=== PATIENT | female | born 1945 | race Caucasian/White ===

== ENCOUNTER → 2019-01-17 | Outpatient (CLI) | payer OTHER ==
[~2019-01-17] MED LIST: ADULT LOW DOSE81 MG PO; AMITRIPTYLINE H25 M4 PO; APAP650 PO; ARIXTRA SC; ASPIRIN BUFFER325 MG PO; ASPIRIN325 PO; ATENOLOL 25 MG25 M1 PG; ATENOLOL 25 MG25 M1 PO; DILTIAZEM HCL90 MG PO; ELAVIL PO; FLEXERIL PO; HYDROCHLOROTH12.5 MG PO; HYDROCODON-ACE1 EACH PO; LEVOTHYROXINE 0.1 MG PO; METAMUCIL PAC1 UDPKT PO; MIRALAX17 GM PO; MOBIC15 MG PO; NEURONTIN 300300 M1 PO; NORCO 5-325 TA1 EACH PO; ONDANSETRON HCL4 M2 PO; OXYCODONE HCL 55 MG PO; OXYIR 5 MG CAPSU5 M1 PO; PEPCID20 MG PO; PERCOCET PO; PREMARIN; PREMARIN VAGI42.5 G1 VAG; TRANSDERM-SCO1 PATC1 TD; TRIAMTERENE-HC1 EAC1 PO; XARELTO10 MG PO
--- NOTE | 2019-01-17 18:52 | CARDNUC ---
[place] [address] CARDIAC NUCLEAR IMAGING REPORT Name: BIRDIE MEDINA Room: [facility]#: [id number] Admission: 01/17/19 Attend Phys: Rafael Rodriguez MD Discharge: Date of : 43 Date of Service: 01/17/19 185 Report #: [id number] THIS REPORT FOR: //name// APPROVED REPORT Study performed: 01/17/2019 09:19:28 Indication: Fatigue, Chest pain Patient Location: Out-Patient Stress Tech: Tanesha Boone Stress Nurse: Romelia Jimenez RN NM Tech:ANJELICA Hancock Ht: 5 ft 2 in Wt: 2 lbs BSA: 0.27 m2 HR: 86 bpm BP: 151//82 mmHg BMI: 0.36 Rhythm: NSR Medical History Medical History: Hyperlipidemia, HTN Medications: Aspirin, Diltiazem, Atenolol, Fosamax, Maxzide 37.5/25, Synthroid Allergies: Sulfa Cardiac Risk Factors: Age, Hyperlipidemia, HTN Pretest Chest Pain Characteristics: No chest pain Exercise History: Physically active Meds Held (24 hrs): Diltiazem, , Atenolol Resting Data Rest SPECT myocardial perfusion imaging was performed in supine position 30 minutes following the intravenous injection of 11.4 mCi of Tc-99m Sestamibi. Time of rest injection: 07:50 The images were gated to evaluate regional wall motion and calculate left ventricular ejection fraction. Administration Route: IV Administration Site: Right AC Exercise Stress At peak stress, the patient was injected intravenously with 35.3mCi of Tc-99m Sestamibi. Time of stress injection: 09:20 Administration Route: IV Administration Site: Right AC Heart Rate at time of stress injection: [address] [place] [address] CARDIAC NUCLEAR IMAGING REPORT Name: BIRDIE MEDINA Room: [facility]#: [id number] Admission: 01/17/19 Attend Phys: Rafael Rodriguez MD Discharge: Date of : 43 Date of Service: 01/17/19 1852 Report #: [id number] Patient continued to exercise for 1 minute(s). Gated Stress SPECT was performed 45 minutes after stress injection. The images were gated to evaluate regional wall motion and calculate left ventricular ejection fraction. Prone imaging was performed. Stress Test Details Stress Test: Pharmacologic stress was paired with low level exercise. HR Max Heart Rate (APMHR): 146 bpm Resting HR: 86 bpm Target HR (85% APMHR): 124 bpm Max HR Achieved: 140 bpm % of APMHR: 95 Recovery HR: 97 bpm HR response to stress: Accelerated HR response to stress BP Resting BP: 151/82 mmHg Max BP: 224/64 mmHg Recovery BP: 173/66 mmHg BP response to stress: Abnormal hypertensive response to stress. ECG Resting ECG: Sinus Rhythm Stress ECG: Sinus Tachycardia ST Change: None Arrhythmia: None Recovery ECG: Sinus Rhythm Recovery ST Change: None Recovery Arrhythmia: None Clinical Reason for Termination: Completed protocol Stress Symptoms: Headache, SOA, Neck vein distention, slight chest pressure The patient had chest pressure, headache and shortness of breath felt to be due to medication effect secondary to normal myocardial perfusion imaging findings. Nurse Comments During the test carotid vein distention Stress ECG Conclusion The baseline 12-lead EKG shows sinus rhythm [place] [address] CARDIAC NUCLEAR IMAGING REPORT Name: BIRDIE MEDINA Room: [facility]#: [id number] Admission: 01/17/19 Attend Phys: Rafael Rodriguez MD Discharge: Date of : 43 Date of Service: 01/17/19 1852 Report #: [id number] T wave abnormality. EKGs obtained during and post exercise showed sinus rhythm and sinus tachycardia with no significant ST or T wave changes when compared to baseline. There were no significant stress-induced arrhythmias. Study Quality Study: Good Artifact: No artifact Study Data At rest, the left ventricular ejection fraction was 78%.. Post stress, the left ventricular ejection was 64%.. TID = 1.12. Perfusion Normal left ventricular perfusion. Wall Motion Global LV systolic function is well-preserved. Inferior wall is not well evaluated on gated images due to significant attenuation artifact. Nuclear Conclusion ECG Findings: negative for ischemia Clinical Findings: equivocal Nuclear Findings: negative for ischemia Exercise Capacity: not assessed Left Ventricular Function: normal Risk Study: low Myocardial perfusion images show no defect to suggest infarct or ischemia. Left ventricular systolic function appears normal on gated studies. This is a low risk study. <Conclusion> The baseline 12-lead EKG shows sinus rhythm without significant ST or T wave abnormality. EKGs obtained during and post exercise showed sinus rhythm and sinus tachycardia with no significant ST or T wave changes when compared to baseline. There were no significant stress-induced arrhythmias. <ELECTRONICALLY SIGNED> By: Hardeep Watson MD, FACC 01/17/191851 51 51 Hardeep Watson MD, FACC /INF
== END ==
LOC: M.ULTRA 12-31 09:15 → M.NUC 07:31
DX: I65.23 Occlusion and stenosis of bilateral carotid arteries (principal); I10 Essential (primary) hypertension; E78.5 Hyperlipidemia, unspecified; Z79.899 Other long term (current) drug therapy; Z79.82 Long term (current) use of aspirin; Z88.2 Allergy status to sulfonamides

== ENCOUNTER 2019-07-01 14:43 | Observation (INO) | payer OTHER ==
[~2019-07-01] VITALS: Ht 154.9 cm; Wt 67.6 kg
[2019-07-01 14:49] VITALS: BP 121/71
[2019-07-01] MEDS ORDERED: ASA81BEC PO (14:58)
[2019-07-01] MEDS ORDERED: HYDROCHLOROTHIA25 M2 PO (14:59)
[2019-07-01 15:36] LABS: ABSOLUTE BASOPHILS 0.1 thou/uL (0.0-0.2); ABSOLUTE EOSINOPHILS 0.2 thou/uL (0.0-0.7); ABSOLUTE LYMPHOCYTES 2.6 thou/uL (0.8-5.3); ABSOLUTE MONOCYTES 0.6 thou/uL (0.0-1.2); ABSOLUTE NEUTROPHILS 5.1 thou/uL (1.6-8.1); EOSINOPHILS 2.5 %; HEMATOCRIT 37.9 % (37.0-47.0); HEMOGLOBIN 13.2 gm/dL (12.0-15.0); LYMPHOCYTES 30.3 %; MCH 31.1 pg (26.0-34.0); MCHC 34.7 g/dL (28.0-37.0); MCV 89.6 fL (80.0-100.0); MONOCYTES 6.9 %; MPV 8.6 fl. (7.2-11.1); NUCLEATED RBCS 0 /100WBC; PLATELET COUNT* 316 thou/uL (150-400); POLYS 59.3 %; RBC 4.23 mil/uL (4.20-5.00); RDW-CV 13.7 % (10.5-14.5); WBC 8.7 thou/uL (4.0-11.0)
[2019-07-01 15:48] LABS: CREATININE 0.9 mg/dL (0.6-1.3); POTASSIUM 3.1 mmol/L (3.5-5.1)
[2019-07-01 15:53] LABS: ALBUMIN 3.6 g/dL (3.4-5.0); TOTAL BILIRUBIN 0.3 mg/dL (<0.1-1.0); TOTAL PROTEIN 7.3 g/dL (6.4-8.2)
[2019-07-01 16:29] LABS: URINE CLARITY SL CLOUDY; URINE COLOR YELLOW
[2019-07-01 16:30] LABS: URINE BILIRUBIN NEGATIVE (Negative); URINE BLOOD NEGATIVE (Negative); URINE GLUCOSE-RANDOM NEGATIVE (Negative); URINE KETONES NEGATIVE (Negative); URINE LEUKOCYTES-REFLEX NEGATIVE (Negative); URINE NITRITE-REFLEX NEGATIVE (Negative); URINE PROTEIN NEGATIVE (Negative); URINE SPECIFIC GRAVITY 1.015 (1.005-1.030); URINE UROBILINOGEN 0.2 E.U./dl (0.2-1.0)
[2019-07-01 16:32] LABS: AMORPHOUS URATES Moderate /LPF (None Seen); CASTS None Seen /LPF (None Seen); MUCUS None Seen strn/LPF (None Seen); SQUAMOUS 0-3 Few /LPF (0-3); URINE RBC None Seen /HPF (0-2); URINE WBC-REFLEX 0-5 Rare /HPF (0-5)
[2019-07-01 16:33] LABS: BACTERIA-REFLEX 1-9 Few /HPF (None Seen)
[2019-07-01 17:20] LABS: CHOLESTEROL 233 mg/dL (<200); HDL CHOLESTEROL 47 mg/dL (>40); LDL CHOLESTEROL 123 mg/dL (<100); SERUM ASSESSMENT Clear; TRIGLYCERIDE 319 mg/dL (<150); VLDL 64 mg/dL (<40)
[2019-07-01 21:21] VITALS: BP 110/75
[2019-07-01 23:00] VITALS: BP 154/70
[2019-07-01 23:42] VITALS: BP 120/55
[2019-07-02 04:00] VITALS: BP 133/67
[2019-07-02 06:27] LABS: CALCIUM 8.4 mg/dL (8.5-10.1); CREATININE 0.8 mg/dL (0.6-1.3); MAGNESIUM 1.8 mg/dL (1.8-2.4); POTASSIUM 3.8 mmol/L (3.5-5.1)
[2019-07-02 08:00] VITALS: BP 137/70
[2019-07-02 11:14] VITALS: BP 137/70
[2019-07-02 11:31] VITALS: BP 128/57
[2019-07-02] MEDS ORDERED: NITROGLYCERIN0.4 MG SUBLING (11:33)
--- NOTE | 2019-07-02 13:57 | EKG ---
[place] [address] ELECTROCARDIOGRAM REPORT Name: BIRDIE MEDINA Room: [address]#: [id number] Admission: 07/01/19 Attend Phys: Erlin Edgar, Discharge: 07/02/19 Date of : 43 Date of Service: 07/01/19 1448 Report #: [id number] THIS REPORT FOR: cc: Naveen Beasley MD, Matthew W. 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 : 1945 Requested By: Sherry Duenas Order Number: [id number] MD: Ramos Lauren Measurements Intervals [place] Rate: 88 P: 39 ME: 177 QRS: -30 QRSD: 92 T: 29 QT: 372 QTc: 450 Interpretive Statements Sinus rhythm Left axis deviation RSR' in V1 or V2, probably normal variant Consider anterior infarct Compared to ECG 02/24/2014 11:14:33 Left-axis deviation now present RSR' in V1 or V2 now present Myocardial infarct finding now present Electronically Signed On 07-01-2019 16:11:23 AOC [employer]IC[employer] by Ramos Lauren [email or web address] <ELECTRONICALLY SIGNED> By: Ramos Lauren MD, [facility] 07/01/19 1611 1448 1448 Ramos Lauren MD, [facility] /EPI
== END 2019-07-02 12:23 | disposition home or self-care (01) ==
LOC: M.ERS 14:43 → M.2W 16:36 → M.TBA-ER 16:36 → M.2W 23:00
PROVIDERS: Nurse Practitioner Family; ADMIT Internal Medicine
DX: I25.110 Atherosclerotic heart disease of native coronary artery with unstable angina pectoris (principal); I10 Essential (primary) hypertension; E87.6 Hypokalemia; E78.5 Hyperlipidemia, unspecified

== ENCOUNTER → 2019-07-30 | Outpatient (CLI) | payer OTHER ==
[~2019-07-30] VITALS: Ht 157.5 cm; Wt 65.8 kg
[~2019-07-30] MED LIST changes: +ASA81BEC PO; +CALCIUM500 MG PO; +MAGNESIUM250 M1 PO; +NITROGLYCERIN0.4 MG SUBLING; +TRIAMTERENE/HCTZ PO; +VITAMIN D310 MC2 PO; +ZETIA10 MG PO
--- NOTE | 2019-07-30 11:33 | 2DMMODE ---
[place] [address] 2 D/M-MODE ECHOCARDIOGRAM Name: ADAMBIRDIE Babak Room: [facility]#: [id number] Admission: 07/30/19 Attend Phys: Elaine Diamond RN Discharge: Date of : 43 Date of Service: 07/30/19 1132 Report #: [id number] THIS REPORT FOR: cc: Naveen Beasley MD, Matthew W. MD Holkins, John M. MD [facility] ~ APPROVED REPORT Study performed: 07/30/2019 10:25:16 EXAM: Comprehensive 2D, Doppler, and color-flow Echocardiogram Patient Location: Out-Patient BSA: 1.68 HR: 80 bpm BP: 135/70 mmHg Other Information Study Quality: Good Indications Rheumatic Fever Chest Pain 2D Dimensions IVSd: 11.35 (7-11mm) LVOT Diam: 19.68 (18-24mm) LVDd: 42.09 mm PWd: 9.31 (7-11mm) Ascending Ao: 30.96 (22-36mm) LVDs: 24.96 (25-40mm) Aortic Root: 26.48 mm Volumes Left Atrial Volume (Systole) LA ESV Index: 16.10 mL/m2 Aortic Valve AoV Peak Miguel A.: 1.38 m/s AO Peak Gr.: 7.56 mmHg LVOT Max P.05 mmHg AO Mean Gr.: 4.02 mmHg LVOT Mean P.12 mmHg LVOT Max V: 0.72 m/s AO V2 VTI: 30.35 cm LVOT Mean V: 0.49 m/s ZULLY (VTI): 1.79 cm2 LVOT V1 VTI: 17.84 [place] [address] 2 D/M-MODE ECHOCARDIOGRAM Name: BIRDIE MEDINA Room: [facility]#: [id number] Admission: 07/30/19 Attend Phys: Elaine Diamond RN Discharge: Date of : 43 Date of Service: 07/30/19 1132 Report #: [id number] E/A Ratio: 0.63 MV Decel. Time: 203.05 ms MV E Max Miguel A.: 0.62 m/s MV PHT: 58.88 ms MVA (PHT): 3.74 cm2 TDI E/Lateral E': 6.89 E/Medial E': 8.86 Medial E' Miguel A.: 0.07 m/s Lateral E' Miguel A.: 0.09 m/s Pulmonary Valve PV Peak Miguel A.: 0.79 m/s PV Peak Gr.: 2.51 mmHg Tricuspid Valve RAP Estimate: 5.00 mmHg TR Peak Gr.: 21.19 mmHg RVSP: 26.19 mmHg PA Pressure: 26.19 mmHg Left Ventricle The left ventricle is normal size. There is normal LV segmental wall motion. There is normal left ventricular wall thickness. Left ventricular systolic function is normal. The left ventricular ejection fraction is within the normal range. LVEF is 55-60%. Grade I - abnormal relaxation pattern. Right Ventricle The right ventricle is normal size. The right ventricular systolic function is normal. Atria The left atrium size is normal. The right atrium size is normal. Aortic Valve Aortic valve is mildly calcified. No aortic regurgitation is present. There is no aortic valvular stenosis. Mitral Valve Mild mitral annular calcification. Mild mitral regurgitation. No evidence of mitral valve stenosis. Tricuspid Valve The tricuspid valve is normal in structure. Mild tricuspid [place] [address] 2 D/M-MODE ECHOCARDIOGRAM Name: ADAMBIRDIE Babak Room: [facility]#: [id number] Admission: 07/30/19 Attend Phys: Elaine Diamond RN Discharge: Date of : 43 Date of Service: 07/30/19 1132 Report #: [id number] Pulmonic Valve The pulmonary valve is normal in structure. Mild pulmonic regurgitation. Great Vessels The aortic root is normal in size. IVC is normal in size and collapses >50% with inspiration. Pericardium There is no pericardial effusion. <Conclusion> The left ventricle is normal size. There is normal left ventricular wall thickness. Left ventricular systolic function is normal. The left ventricular ejection fraction is within the normal range. LVEF is 55-60%. Grade I - abnormal relaxation pattern. The right ventricle is normal size. The left atrium size is normal. Aortic valve is mildly calcified. No aortic regurgitation is present. There is no aortic valvular stenosis. Mild mitral annular calcification. Mild mitral regurgitation. No evidence of mitral valve stenosis. The tricuspid valve is normal in structure. Mild tricuspid regurgitation. IVC is normal in size and collapses >50% with inspiration. There is no pericardial effusion. There is normal LV segmental wall motion. <ELECTRONICALLY SIGNED> By: Ramos Lauren MD, FACC 07/30/19 1132 31 113 Ramos Lauren MD, FACC /INF
[2019-07-30 11:47] LABS: HEMATOCRIT 39.9 % (37.0-47.0); HEMOGLOBIN 13.8 gm/dL (12.0-15.0); MCH 31.2 pg (26.0-34.0); MCHC 34.5 g/dL (28.0-37.0); MCV 90.3 fL (80.0-100.0); MPV 9.4 fl. (7.2-11.1); RBC 4.41 mil/uL (4.20-5.00); RDW-CV 13.5 % (10.5-14.5)
[2019-07-30 11:54] VITALS: BP 147/61
[2019-07-30 12:33] LABS: APTT 26.1 Seconds (25.0-31.3)
[2019-07-30 12:36] LABS: SODIUM 141 mmol/L (136-145)
[2019-07-30 12:37] LABS: ALBUMIN 3.8 g/dL (3.4-5.0); ALKALINE PHOSPHATASE 67 U/L (46-116); ANION GAP 5 mmol/L (7-16); BUN 15 mg/dL (7-18); CALCIUM 8.9 mg/dL (8.5-10.1); CHLORIDE 104 mmol/L (98-107); CHOLESTEROL 195 mg/dL (<200); CO2 32 mmol/L (21-32); CREATININE 0.7 mg/dL (0.6-1.3); GLUCOSE 93 mg/dL (70-99); HDL CHOLESTEROL 59 mg/dL (>40); LDL CHOLESTEROL 109 mg/dL (<100); POTASSIUM 3.8 mmol/L (3.5-5.1); SGOT 22 U/L (15-37); SGPT 29 U/L (30-65); TC:HDL 3.3 Ratio (Not establshd); TOTAL BILIRUBIN 0.5 mg/dL (<0.1-1.0); TOTAL PROTEIN 7.6 g/dL (6.4-8.2); TRIGLYCERIDE 137 mg/dL (<150); VLDL 27 mg/dL (<40)
[2019-07-30 12:38] LABS: SERUM ASSESSMENT Clear
--- NOTE | 2019-07-30 16:48 | EKG ---
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1945 Requested By: Ramos Lauren Order Number: [id number] Verónica MD: Ramos Lauren Measurements Intervals [place] Rate: 77 P: 26 ID: 180 QRS: -16 QRSD: 88 T: 7 QT: 385 QTc: 436 Interpretive Statements Sinus rhythm Borderline left axis deviation Compared to ECG 07/01/2019 14:48:31 Myocardial infarct finding no longer present Electronically Signed On 07-30-2019 16:46:57 CDT by Ramos Lauren [email or web address] <ELECTRONICALLY SIGNED> By: Ramos Lauren MD, [facility] 07/30/19 8066 1155 1155 Ramos Lauren MD, [facility] /EPI
--- NOTE | 2019-08-02 11:30 | CARD ---
[address] [address] CARDIAC CATH REPORT Name: BIRDIE MEDINA Room: [facility]#: [id number] Admission: 07/30/19 Attend Phys: CARLOS Arceo Discharge: Date of : 43 Report #: [id number] THIS REPORT FOR: //name// cc: Naveen Beasley MD, Matthew W. MD ~ THIS REPORT FOR: //name// APPROVED REPORT Study performed: 07/30/2019 14:36:23 Patient Details Patient Status: Out-Patient Room #: The patient is a 74 year-old female Event Personnel Ramos Lauren Yard Brakeman, Abby Dhaliwal RN RN, Carla Zhang RTR ScrubHandy Jessie RTR Monitor Procedures Performed Art Access - R femoral artery, Left Heart Cath w/or w/o Coronaries , Hemostasis w/ Mynx Indication Dyspnea, Chest pain Risk Factors Family History, Hypercholesterolemia, Hypertension Admission/Lab Medications/Medications given during procedure Oxygen Nasal cannula 2 l per min Procedure Narrative The patient was brought electively to the Cardiac Catheterization Laboratory and was prepped and draped in a sterile manner. The right femoral was infiltrated with 2% Lidocaine subcutaneous anesthesia. A [place] 6 FR sheath was inserted into the right femoral artery. Coronary angiography was performed using coronary diagnostic catheters. The right coronary system was accessed and visualized with a 6F JR4 and 5 Fr 3 DRC catheter. The left coronary system was accessed and visualized with a 6 Fr JL 4 catheter. The left ventricle was accessed and visualized with a 6 Fr Pigtail catheter. Left ventricular/Aortic Valve gradient assessed via catheter pullback. Left ventriculogram was performed in GUEVARA projection. Pre-demployment femoral angiogram was performed . Closure device was deployed with a [address] [place] [address] CARDIAC CATH REPORT Name: BIRDIE MEDINA Room: [facility]#: [id number] Admission: 07/30/19 Attend Phys: CARLOS Arceo Discharge: Date of : 43 Report #: [id number] 6 Fr MynxGrip. The patient tolerated the procedure well and there were no complications associated with the procedure. There was no hematoma. Intraoperative Conscious Sedation Sedation start time: 15:11 Case end Time: 15:46 Fentanyl 25 mcg Versed 2 mg Fluoro Time: 3.8 minutes Dose: DAP 83847 cGycm2 775 mGy Contrast Type and Amount: Visipaque 140 ml Diagnostic Cath Left Main 0% narrowing LAD 40% mid LAD narrowing with moderate calcification in this region Circumflex 30% narrowing of the midportion of the nondominant circumflex Right Coronary 40% narrowing of the midportion of the dominant right coronary artery with collateral filling of a branch of the distal circumflex from the distal right coronary artery Left Ventriculography The left ventricle is normal in size with normal contractility. The left ventricular ejection fraction is estimated to be 60%. Left ventricular wall motion abnormalities are not present. There is no mitral insufficiency. Hemodynamics The aortic pressure is 118/43 mmHg with a mean of 73 mmHg. The left ventricular pressure is 117/-1 mmHg with a mean of mmHg. The left ventricular end diastolic pressure is 3 mmHg. Conclusion #1 modest coronary artery disease characterized by following: A 40% mid LAD narrowing with local calcification B 30% mid circumflex narrowing C 40% narrowing in the midportion of the dominant right coronary artery with some collateral flow to a branch of the distal circumflex from the distal right coronary artery #2 normal left ventricular systolic function, [place] [address] CARDIAC CATH REPORT Name: BIRDIE MEDINA Room: [facility]#: [id number] Admission: 07/30/19 Attend Phys: CARLOS Arceo Discharge: Date of : 43 Report #: [id number] fraction 60% #3 normal left-sided hemodynamics study. Recommendations Cardiac Risk Reduction Program Diagnostic Cath Approved by: Ramos Lauren MD Date/Time: 08/02/2019 11:28:52 <ELECTRONICALLY SIGNED> By: Ramos Lauren MD, [facility] 08/02/19 1129 1129 1129John Dre Lauren MD, FACC /INF
== END | disposition home or self-care (01) ==
LOC: M.CRD 08:00
PROVIDERS: Internal Medicine
DX: R07.9 Chest pain, unspecified (principal); R06.00 Dyspnea, unspecified; I25.84 Coronary atherosclerosis due to calcified coronary lesion; I08.1 Rheumatic disorders of both mitral and tricuspid valves; I10 Essential (primary) hypertension; Z98.51 Tubal ligation status; I48.91 Unspecified atrial fibrillation; Z90.49 Acquired absence of other specified parts of digestive tract; Z98.890 Other specified postprocedural states; Z79.899 Other long term (current) drug therapy; Z79.01 Long term (current) use of anticoagulants; Z88.2 Allergy status to sulfonamides; Z88.8 Allergy status to other drugs, medicaments and biological substances; Z79.82 Long term (current) use of aspirin

== ENCOUNTER 2021-03-01 11:28 | Emergency (ER) | payer OTHER ==
[~2021-03-01] VITALS: Ht 154.9 cm; Wt 68.0 kg
[2021-03-01] MEDS ORDERED: CRUTCHES MISCELL ×2 (13:16)
[2021-03-01] MEDS ORDERED: HYDROCODON-ACE1 EAC7 PO (13:21)
[2021-03-01 13:37] VITALS: BP 147/78
== END 2021-03-01 13:42 | disposition home or self-care (01) ==
LOC: M.ERS 11:28
DX: M25.551 Pain in right hip (principal); I10 Essential (primary) hypertension; I48.91 Unspecified atrial fibrillation; Z90.89 Acquired absence of other organs; Z90.49 Acquired absence of other specified parts of digestive tract; Z98.51 Tubal ligation status; Z79.2 Long term (current) use of antibiotics; Z79.899 Other long term (current) drug therapy; Z88.2 Allergy status to sulfonamides